=== PATIENT | male | born 1955 | race Caucasian/White ===

== ENCOUNTER 2018-12-13 12:59 | Day surgery (SDC) | payer OTHER ==
[~2018-12-13] VITALS: Ht 170.2 cm; Wt 86.2 kg
[~2018-12-13 12:59] MED LIST: DEPO-TESTO200 MG/1 M IM; FORTAMET500 MG PO; METOPROLOL SUCC25 MG PO; NORVASC5 MG PO
[2018-12-13] MEDS ORDERED: MULTIVITAMINS1 EAC7 PO (13:17)
[2018-12-13] MEDS ORDERED: VITAMIN D5000 UNIT PO (13:17)
[2018-12-13] MEDS ORDERED: MAGNESIUM100 MG PO (13:17)
--- NOTE | 2018-12-13 15:07 | NUR ---
12/13/18 Shima7 Hyacinth Peace 1501- PT ARRIVES TO PACU AROUSABLE TO VOICE. PT FALLS ASLEEP WHEN NOT BEING TALKED TO. PT REPORTS PAIN A 7/10 IN HIS ABD. EDUCATED PT ABOUT TRYING TO PASS FLATUS TO ASSIST WITH PAIN RELIEF. PT STATES UNDERSTANDING AND INSTANTLY FALLS BACK TO SLEEP. RESP EVEN AND UNLABORED. OXYGEN SAT HIGH 90'S TO 100% [place] 2[place]. [address] OXYGEN TURNED OFF. OXYGEN SAT HIGH 90'S ON RA. RESP EVEN AND UNLABORED. PT SLEEPING AT THIS TIME.
--- NOTE | 2018-12-14 08:37 | OR ---
[facility] [address] [place], [place] [address] Signed DATE OF OPERATION: 12/13/2018 SURGEON: Gaby Dominguez MD PREOPERATIVE DIAGNOSIS: History of polyps x2 in 2006, [facility]. POSTOPERATIVE DIAGNOSES: 1. Sigmoid diverticulosis. 2. Polyps x4. PROCEDURES PERFORMED: Total colonoscopy to cecum with hot snare polypectomy x1 and cold morcellation polypectomy x3. ANESTHESIA: Intravenous sedation, fentanyl 150 mcg, Versed 7 mg. INDICATION: This 63-year-old white man is patient of Nhan Sims. He has numerous medical problems, but did undergo colonoscopy in 2006 at [facility], where he was found to have 2 polyps. He was recommended to have colonoscopy in followup prior to this time. He is admitted at this time to undergo surveillance colonoscopy on the basis of prior polyps. He understands the risks of bleeding, infection, and perforation related to colonoscopy and wished to proceed. FINDINGS: The prep was good. Complete colonoscopy was undertaken of the cecum. There were numerous diverticula of the left colon and sigmoid. There was a relatively large 2 cm polyp which was largely sessile at 15 cm for which a hot snare polypectomy technique was undertaken. There is another small polyp at approximately 80 cm in the proximal descending colon, which was excised with cold morcellation technique in two very small polyps of the low rectum, probably hyperplastic, which were excised with cold technique. No sign of cancer frankly, though the large polyp will be closely reviewed regarding its pathology. PROCEDURE PERFORMED: The patient was brought to the endoscopy suite, placed in lateral decubitus position, and given intravenous sedation to the point of slurred speech and nystagmus. Digital rectal examination was normal. Electronically Signed By: GABY DOMINGUEZ MD 12/14/18 0837 PATIENT NAME: HAILY SHAIKH OPERATIVE REPORT DATE OF : 57 REPORT #: [id number] PHYSICIAN: GABY DOMINGUEZ MD PCP: NHAN SIMS PAC REPORT IS CONFIDENTIAL AND NOT TO BE RELEASED WITHOUT AUTHORIZATION [facility] [address] [place], [place] [address] Signed An Olympus video colonoscope was passed in the rectum and manipulated throughout the colon, ultimately intubating the cecum itself. The ileocecal valve and appendiceal orifice were normal. Scope was withdrawn from that point and examination undertaken. The proximal descending colon approximately 80 cm was a small sessile polyp. Photographs were taken. It was excised with cold morcellation technique without problem. Further withdrawal of scope noted diverticular change of the sigmoid and left colon. Approximately 15 cm from the anal verge was an obviously adenomatous, larger polyp that had a relatively broad base, but not a flat sessile polyp otherwise. This was excised with hot snare polypectomy technique. Photographs were taken. Specimen was passed for pathology. Further withdrawal of laparoscope with retroflexed view of the rectum showed two small probably hypoplastic polyps of the low rectum. These were excised with cold morcellation technique. The scope was removed and the patient was taken to recovery room in good condition. CONCLUDING DIAGNOSES: 1. Diverticulosis. 2. Polyps x4. PLAN: Recommend repeat colonoscopy in 2 years, sooner if clinically indicated. We will review his pathology reports to better inform our recommendation. Gaby Dominguez MD JM/MODL /[id number] cc: Nhan Sims PA-C Copies: NHAN SIMS ~ Electronically Signed By: GABY DOMINGUEZ MD 12/14/18 0837 PATIENT NAME: HAILY SHAIKH OPERATIVE REPORT DATE OF : 57 REPORT #: [id number] PHYSICIAN: GABY DOMINGUEZ MD PCP: NHAN SIMS REPORT IS CONFIDENTIAL AND NOT TO BE RELEASED WITHOUT AUTHORIZATION
== END 2018-12-13 16:00 | disposition home or self-care (01) ==
LOC: OPS 12:59 → DS 14:00 → OPS 14:00
PROVIDERS: Surgery
PROC: 0DBE8ZZ Excision of Large Intestine, Via Natural or Artificial Opening Endoscopic (ICD-10-PCS; 2018-12-13)
PROC: 0DBN8ZZ Excision of Sigmoid Colon, Via Natural or Artificial Opening Endoscopic (ICD-10-PCS; 2018-12-13)
PROC: 0DBP8ZZ Excision of Rectum, Via Natural or Artificial Opening Endoscopic (ICD-10-PCS; 2018-12-13)
PROC: 0DBL8ZZ Excision of Transverse Colon, Via Natural or Artificial Opening Endoscopic (ICD-10-PCS; principal; 2018-12-13 14:00)
DX: Z12.11 Encounter for screening for malignant neoplasm of colon (principal); D12.6 Benign neoplasm of colon, unspecified; K63.5 Polyp of colon; K62.1 Rectal polyp; K57.30 Diverticulosis of large intestine without perforation or abscess without bleeding; I10 Essential (primary) hypertension; K21.9 Gastro-esophageal reflux disease without esophagitis; Z85.47 Personal history of malignant neoplasm of testis; Z86.010 Personal history of colon polyps
CPT/HCPCS: 99153; G0500; J2250; J3010; J7120

== ENCOUNTER 2022-08-25 15:18 | Emergency (ER) | payer MEDICARE ==
[~2022-08-25] VITALS: Ht 170.2 cm; Wt 81.2 kg
[~2022-08-25 15:18] MED LIST changes: +MAGNESIUM100 MG PO; +MULTIVITAMINS1 EAC7 PO; +VITAMIN D5000 UNIT PO
--- OUTSIDE RECORDS SUMMARY | 2022-08-25 15:20 | XMS ---
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 Lyssa has no Care Guidelines for this patient. Luz Marina VISIT COUNT (12 MO.) 1 [facility] 1 PATRICIA Singh TOTAL 2 NOTE: Visits indicate total known visits. ED/C VISIT TRACKING (12 MO.) 08/25/2022 15:19 PATRICIA Gallo [place] TYPE: Emergency COMPLAINT: - POSS MEDICATION REACTION 07/15/2022 10:45 [facility]ty [facility] TYPE: Emergency COMPLAINT: - EMS DIAGNOSES: - Unspecified atrial fibrillation - Non-ST elevation (NSTEMI) myocardial infarction - EMS - Chest Pain INPATIENT VISIT TRACKING (12 MO.) 07/15/2022 18:38 Scotty [facility] TYPE: Progressive Care COMPLAINT: - EMS DIAGNOSES: - Unspecified atrial fibrillation - Non-ST elevation (NSTEMI) myocardial infarction [email or web address]
[2022-08-25] MEDS ORDERED: TOPROL XL100 MG PO (15:31)
[2022-08-25] MEDS ORDERED: ENTRESTO 24 MG1 EACH PO (15:32)
[2022-08-25] MEDS ORDERED: ELIQUIS5 MG PO (15:32)
--- NOTE | 2022-08-26 20:46 | EKG ---
[facility] [address] [facility] [place] [address] Signed Sinus bradycardia Left bundle branch block Abnormal ECG When compared with ECG of 18-DEC-2016 19:13, No significant change was found Confirmed by Clifton Rousseau MD () on 08/26/2022 8:46:20 PM Electronically Signed By: CLIFTON ROUSSEAU MD 08/26/222045 PATIENT NAME: SHAIKHHAILYKirk REAGAN Electrocardiogram DATE OF : 57 PHYSICIAN: CLIFTON ROUSSEAU MD REPORT #: [id number] REPORT IS CONFIDENTIAL AND NOT TO BE RELEASED WITHOUT AUTHORIZATION
== END 2022-08-25 17:51 | disposition home or self-care (01) ==
LOC: ED 15:18
DX: J06.9 Acute upper respiratory infection, unspecified (principal); R07.89 Other chest pain; R42 Dizziness and giddiness; I48.91 Unspecified atrial fibrillation; Z20.822 Contact with and (suspected) exposure to COVID-19; Z79.899 Other long term (current) drug therapy
CPT/HCPCS: 36415; 71045; 80053; 83880; 84484; 85025; 87502; 93005; 93010; 99285-25; C9803; U0003

== ENCOUNTER → 2023-01-05 | Emergency (ER) | payer MEDICARE, OTHER ==
[~2023-01-05] VITALS: Ht 170.2 cm; Wt 81.2 kg
[~2023-01-05] MED LIST changes: +ATORVASTATIN CA80 MG PO; +CLOPIDOGREL75 MG PO; +ELIQUIS5 MG PO; +ENTRESTO 24 MG1 EACH PO; +METOPROLOL SUCC50 MG PO; +TOPROL XL100 MG PO
--- NOTE | 2023-01-06 14:02 | EKG ---
[facility] [address] [facility] [place] [address] Signed Atrial fibrillation with rapid ventricular response Left bundle branch block Abnormal ECG No previous ECGs available Confirmed by MARIA ISABEL SABILLON MD ([id number]) on 01/06/2023 2:02:47 PM Electronically Signed By: MARIA ISABEL SABILLON MD 01/06/23 1402 PATIENT NAME: HAILY SHAIKH Electrocardiogram DATE OF : 57 PHYSICIAN: MARIA ISABEL SABILLON MD REPORT #: [id number] REPORT IS CONFIDENTIAL AND NOT TO BE RELEASED WITHOUT AUTHORIZATION
--- NOTE | 2023-01-06 14:03 | EKG ---
[facility] [address] [facility] [place], [place] [address] Signed Atrial fibrillation with rapid ventricular response with premature ventricular or aberrantly conducted complexes Left bundle branch block Abnormal ECG No previous ECGs available Confirmed by MARIA ISABEL SABILLON MD ([id number]) on 01/06/2023 2:02:52 PM Electronically Signed By: MARIA ISABEL SABILLON MD 01/06/23 1403 PATIENT NAME: SHAIKHHAILY TEZ Electrocardiogram DATE OF : 57 PHYSICIAN: MARIA ISABEL SABILLON MD REPORT #: [id number] REPORT IS CONFIDENTIAL AND NOT TO BE RELEASED WITHOUT AUTHORIZATION
== END ==
LOC: ED 06:03
DX: I48.91 Unspecified atrial fibrillation (principal); I95.9 Hypotension, unspecified; I10 Essential (primary) hypertension; E88.81 Metabolic syndrome and other insulin resistance; U07.1 COVID-19; Z87.891 Personal history of nicotine dependence; Z79.01 Long term (current) use of anticoagulants; Z79.899 Other long term (current) drug therapy; Z79.02 Long term (current) use of antithrombotics/antiplatelets; Z90.5 Acquired absence of kidney; Z85.47 Personal history of malignant neoplasm of testis
CPT/HCPCS: 36415; 71045; 80053; 83735; 84484; 85025; 85060; 85610; 85730; 87502; 93005; 93010; A9270; C9803; J0282; J2704; J3010; J3475; J3490; U0003

== ENCOUNTER 2023-03-09 13:49 | Emergency (ER) | payer MEDICARE, OTHER ==
[~2023-03-09] VITALS: Ht 170.2 cm; Wt 78.5 kg
[~2023-03-09 13:49] MED LIST changes: +CIPRO500 MG PO; +CIPROFLOXACIN750 MG PO; +HYDROCODON-ACE1 EA11 PO; +METRONIDAZOLE500 MG PO
--- OUTSIDE RECORDS SUMMARY | 2023-03-09 13:51 | XMS ---
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 Lyssa has no Care Guidelines for this patient. Luz Marina VISIT COUNT (12 MO[address] [facility] 4 [facility]PukalaniJean Marie Nuñez TOTAL 5 NOTE: Visits indicate total known visits. ED/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 - Personal history of nicotine dependence - Right lower quadrant pain 01/05/2023 06:03 PATRICIA Gallo [place] TYPE: Emergency COMPLAINT: - CHEST PAIN DIAGNOSES: - Acquired absence of kidney - Chest pain, unspecified - COVID-19 - Essential (primary) hypertension - Hypotension, unspecified - 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 - nursing home (current) use of antithrombotics/antiplatelets - Metabolic syndrome - 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 - Personal history of malignant neoplasm of testis - Personal history of nicotine dependence - Unspecified atrial fibrillation 08/25/2022 15:19 PATRICIA Gallo [place] TYPE: Emergency COMPLAINT: - POSS MEDICATION REACTION DIAGNOSES: - Acute upper respiratory infection, unspecified - Contact with and (suspected) exposure to COVID-19 - Dizziness and giddiness - Other chest pain - Other halfway (current) drug therapy - Unspecified atrial fibrillation 07/15/2022 10:45 [facility] ABEBA Saenz TYPE: Emergency COMPLAINT: - EMS DIAGNOSES: - Non-ST elevation (NSTEMI) myocardial infarction - Unspecified atrial fibrillation - Chest Pain - EMS INPATIENT VISIT TRACKING (12 MO.) 01[facility]05[facility]23 [facility] DIAGNOSES: - Atherosclerotic heart disease of rosebud coronary artery without angina pectoris - Chronic systolic (congestive) heart failure - COVID-19 - Dilated cardiomyopathy - Essential (primary) hypertension - Left bundle-branch block, unspecified - Non-ST elevation (NSTEMI) myocardial infarction - Paroxysmal atrial fibrillation - Unspecified atrial fibrillation - Afib RVR 07/15/2022 18:38 [facility] TYPE: Progressive Care COMPLAINT: - EMS DIAGNOSES: - Non-ST elevation (NSTEMI) myocardial infarction - Unspecified atrial fibrillation [email or web address]
[2023-03-09] MEDS ORDERED: VALSARTAN160 MG PO (14:04)
[2023-03-09 16:35] VITALS: BP 177/82
--- NOTE | 2023-03-09 18:27 | EKG ---
[facility] [address] [place] [address] Signed Normal sinus rhythm Left bundle branch block Abnormal ECG When compared with ECG of 05-JAN-2023 06:26, Sinus rhythm has replaced Atrial fibrillation Vent. rate has decreased BY 35 BPM T wave inversion no longer evident in Inferior leads QT has lengthened Confirmed by Clifton Rousseau MD () on 03/09/2023 6:27:03 PM Electronically Signed By: CLIFTON ROUSSEAU MD 03/09/23 1827 PATIENT NAME: HAILY SHAIKH Electrocardiogram DATE OF : 57 PHYSICIAN: CLIFTON ROUSSEAU MD REPORT #: [id number] REPORT IS CONFIDENTIAL AND NOT TO BE RELEASED WITHOUT AUTHORIZATION
== END 2023-03-09 16:35 | disposition home or self-care (01) ==
LOC: ED 13:49
DX: R07.89 Other chest pain (principal); R00.2 Palpitations; I44.7 Left bundle-branch block, unspecified; I25.10 Atherosclerotic heart disease of native coronary artery without angina pectoris; I48.91 Unspecified atrial fibrillation; I10 Essential (primary) hypertension; Z87.891 Personal history of nicotine dependence; Z79.01 Long term (current) use of anticoagulants; Z79.899 Other long term (current) drug therapy
CPT/HCPCS: 80053; 83735; 84436; 84443; 84484; 85025; 93005; 93010; 99285-25

== ENCOUNTER 2023-09-15 00:18 | Emergency (ER) | payer MEDICARE, OTHER ==
[~2023-09-15] VITALS: Ht 170.2 cm; Wt 81.0 kg
[~2023-09-15 00:18] MED LIST changes: +VALSARTAN160 MG PO
[2023-09-15 00:36] LABS: BASOPHILS 0.8 % (0-2); EOSINOPHILS 2.8 % (0-6); HEMATOCRIT 37.5 % (35.0-50.0); HEMOGLOBIN 12.9 g/dL (12.0-18.0); LYMPHOCYTES 14.4 % (24-44); MCH 32.8 (27-36); MCHC 34.3 g/dl (30-36); MCV 95.6 fl (81-99); MONOCYTES 6.7 % (0-12); NEUTROPHILS 75.3 % (39-80); PLATELET COUNT 160 K/uL (140-440); RBC 3.92 M/ul (4.3-5.7); RDW 14.8 (10.5-15.0)
[2023-09-15 00:42] LABS: INR 1.05 (0.80-1.30); PROTIME 13.2 Sec (11.2-14.2)
[2023-09-15 00:59] LABS: ALBUMIN 3.9 g/dL (3.4-5.0); ALBUMIN/GLOBULIN RATIO 1.22 (1.1-2.4); ANION GAP 9.5 (7-21); BILIRUBIN, TOTAL 0.5 ng/dL (0.2-1.0); BUN/CREATININE RATIO 16.54 (6.0-28.6); CALCIUM 8.9 mg/dL (8.5-10.1); CREATININE, SERUM 1.39 mg/dL (0.70-1.30); MAGNESIUM 1.9 mg/dL (1.8-2.4); POTASSIUM 3.5 mmol/L (3.5-5.1); PROTEIN, TOTAL 7.1 g/dL (6.4-8.2)
[2023-09-15 02:12] LABS: BILIRUBIN, URINE NEGATIVE (negative); BLOOD/HGB, URINE SMALL (Negative); KETONE, URINE NEGATIVE (Negative); LEUK ESTERASE, URINE NEGATIVE (negative); NITRITE, URINE NEGATIVE (negative)
[2023-09-15 02:13] LABS: EPITHELIAL CELLS, URINE SQUAMOUS 1+ /lpf (0-1+)
[2023-09-15 02:14] LABS: BACTERIA, URINE RARE /hpf (negative); CASTS, URINE NONE SEEN \\lpf; CRYSTALS, URINE NONE SEEN (0-1+); REFLEX CULTURE, URINE No (No)
[2023-09-15 05:25] VITALS: BP 111/74
--- NOTE | 2023-09-15 06:10 | EKG ---
[facility] [address] [place] [address] Signed Atrial fibrillation with rapid ventricular response Left bundle branch block Abnormal ECG When compared with ECG of 14-SEP-2023 22:36, (Unconfirmed) Atrial fibrillation has replaced Sinus rhythm Vent. rate has increased BY 58 BPM Left bundle branch block has replaced (RBBB and left anterior fascicular block) Confirmed by HUMBERTO FUENTES MD ([id number]) on 09/15/2023 6:10:35 AM Electronically Signed By: HUMBERTO FUENTES 09/15/23 0610 PATIENT NAME: HAILY SHAIKH Electrocardiogram DATE OF : 57 PHYSICIAN: HUMBERTO FUENTES REPORT #: [id number] REPORT IS CONFIDENTIAL AND NOT TO BE RELEASED WITHOUT AUTHORIZATION
--- NOTE | 2023-09-16 05:47 | EKG ---
[facility] [address] [facility] [place] [address] Signed Atrial fibrillation with rapid ventricular response Left bundle branch block prolonged QTc Abnormal ECG When compared with ECG of 15-SEP-2023 00:23, (Unconfirmed) T wave inversion less evident in Inferior leads Confirmed by HUMBERTO FUENTES MD ([id number]) on 09/16/2023 5:46:54 AM Electronically Signed By: HUMBERTO FUENTES 09/16/23 0547 PATIENT NAME: HAILY SHAIKH TEZ Electrocardiogram DATE OF : 57 PHYSICIAN: HUMBERTO FUENTES REPORT #: [id number] REPORT IS CONFIDENTIAL AND NOT TO BE RELEASED WITHOUT AUTHORIZATION
== END 2023-09-15 05:25 | disposition short-term general hospital (02) ==
LOC: ED 00:18
PROVIDERS: Internal Medicine
DX: I48.91 Unspecified atrial fibrillation (principal); I25.10 Atherosclerotic heart disease of native coronary artery without angina pectoris; I10 Essential (primary) hypertension; Z79.01 Long term (current) use of anticoagulants; Z95.5 Presence of coronary angioplasty implant and graft; Z79.4 Long term (current) use of insulin; Z79.899 Other long term (current) drug therapy; Z88.8 Allergy status to other drugs, medicaments and biological substances; Z87.891 Personal history of nicotine dependence; Z11.52 Encounter for screening for COVID-19
CPT/HCPCS: 36415; 71045; 80053; 81001; 83735; 83880; 84484; 85025; 85610; 85730; 93005; 93010; 96361; 96374; 96375; 99285-25; A9270; C9803; J0282; J1644; J7040; U0002